=== PATIENT | female | born 1990 | race Caucasian/White ===

== ENCOUNTER 2017-11-16 11:50 | Emergency (ER) | payer OTHER | END 2017-11-16 13:08 | disposition left against medical advice (07) | LOC: D.ER 11:50 | DX: R50.9 Fever, unspecified (principal) ==

== ENCOUNTER 2018-08-10 16:50 | Emergency (ER) | payer OTHER ==
[~2018-08-10] VITALS: Ht 167.6 cm; Wt 81.8 kg
[2018-08-10 16:55] VITALS: BP 124/85; Ht 167.6 cm; Wt 81.8 kg
[2018-08-10] MEDS ORDERED: EC-NAPROSYN500 MG PO (18:26)
== END 2018-08-10 19:07 | disposition home or self-care (01) ==
LOC: D.ER 16:50
DX: S60.221A Contusion of right hand, initial encounter (principal); Y04.2XXA Assault by strike against or bumped into by another person, initial encounter; Y93.89 Activity, other specified; Y92.89 Other specified places as the place of occurrence of the external cause; M79.671 Pain in right foot

== ENCOUNTER 2019-11-19 18:50 | Emergency (ER) | payer SELFPAY ==
[~2019-11-19] VITALS: Ht 167.6 cm; Wt 84.1 kg
[~2019-11-19 18:50] MED LIST: EC-NAPROSYN500 MG PO
[2019-11-19 19:55] VITALS: Ht 167.6 cm; Wt 84.1 kg
[2019-11-19] MEDS ORDERED: ZOVIRAX200 MG PO (21:14)
[2019-11-19] MEDS ORDERED: VALTREX1000 MG PO (21:20)
[2019-11-19 21:22] LABS: BILIRUBIN NEGATIVE (NEGATIVE); GLUCOSE NEGATIVE (NEGATIVE); KETONE NEGATIVE (NEGATIVE); NITRITE NEGATIVE (NEGATIVE); UROBILINOGEN NORMAL (NORMAL)
[2019-11-19 21:24] LABS: BACTERIA FEW /hpf (NEGATIVE); EPITHELIAL CELLS 0-5 /hpf (0-5); RED CELLS - URINE 0-5 /hpf (0-5); WHITE CELLS - URINE 0-5 /hpf (NEGATIVE)
[2019-11-19 23:33] VITALS: BP 112/70
== END 2019-11-19 23:33 | disposition home or self-care (01) ==
LOC: D.ER 18:50
PROVIDERS: Family Medicine
DX: B00.9 Herpesviral infection, unspecified (principal); R30.0 Dysuria